=== PATIENT | male | born 1950 | race Caucasian/White ===

== ENCOUNTER 2017-09-27 07:10 | Day surgery (SDC) | payer BC ==
[2017-09-25 09:18] VITALS: BMI 28.8
--- NOTE | 2017-09-26 12:11 | HP ---
HISTORY AND PHYSICAL CHIEF COMPLAINT: Right knee pain. 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 It has worsened recently. He notes increasing pain with activity and with twisting movements. He notes intermittent sharp pains in giving way. He has tried previous injections along with medications with only partial temporary relief. He had a previous arthroscopy that gave him partial temporary relief. PAST MEDICAL HISTORY: Significant for gout, reflux disease, and hypertension. PAST SURGICAL HISTORY: Significant for right knee arthroscopy, right hand surgery and cholecystectomy. CURRENT MEDICATIONS: 1. Allopurinol. 2. Aspirin. 3. Lisinopril. 4. Prilosec. 5. Ziac. ALLERGIES: He denies drug allergies. FAMILY HISTORY: Significant for cancer. SOCIAL HISTORY: Significant for social alcohol use. REVIEW OF SYSTEMS: Sixteen point review of systems otherwise reviewed and is noncontributory. PHYSICAL EXAMINATION: On examination, the patient is approximately 5 feet 8 inches, 190 pounds of mesomorphic habitus. HEENT exam is nonfocal. Neck is supple. He has painless passive motion of his right hip. Straight leg raise is negative. Active motion right knee -6 to 115 degrees of flexion. He is tender about the medial joint line. He has a trace effusion. Collaterals are stable, Sandro's negative, Rehana's elicits medial pain. His distal neurovascular exam appears to be intact in the right lower extremity. MRI report for the right knee from 08/29/2017 shows a partial ACL tear along with a posterior medial meniscal tear. Previous x-rays of the right knee obtained in the office show moderate medial compartment narrowing. IMPRESSION: 1. Right knee internal derangement with symptomatic medial meniscal tear. 2. Right knee partial ACL tear. 3. Right knee medial compartment osteoarthrosis. RECOMMENDATIONS: I talked to the patient at length regarding his treatment options. At this point, he is having significant pain and mechanical symptoms that limit him despite adequate conservative measures. After a thorough discussion, he opts to proceed with surgery. We will plan to proceed with arthroscopic evaluation with possible partial medial meniscectomy. Risks and benefits were discussed at length in layman's terms. We will likely perform that as an outpatient procedure. MMODL / IJN: [id number] /
[~2017-09-27 07:10] MED LIST: DEXAMETHASONE SOD PHOSPHATE 10 MG/ML 1 ML VIAL IV ONE; HYDROmorphone 0.5 MG/0.5 ML SYRINGE IVP PRN; LACTATED RINGERS 1,000 ML IV SCH; LIDOCAINE 1% 20 ML VIAL (10MG/ML) FOR IV START INTRADERMA PRN; MIDAZOLAM 2 MG/2 ML VIAL IV PRN; ONDANSETRON 4 MG/2 ML VIAL IVP ONE; SCOPOLAMINE 1.5MG/72HR PATCH TRANSDERM ONE; ceFAZolin IN SWFI 2 GM/20 ML SYRINGE IVP ONE
[2017-09-27] MEDS ORDERED: fentaNYL (PF) 50 MCG/ML 2 ML AMP ONE (08:11)
[2017-09-27] MEDS ORDERED: PROPOFOL 10 MG/ML 20 ML VIAL IV ONE (08:11)
[2017-09-27] MEDS ORDERED: KETOROLAC 30 MG/ML 1 ML VIAL ONE (08:11)
[2017-09-27] MEDS ORDERED: MIDAZOLAM 2 MG/2 ML VIAL ONE (08:11)
[2017-09-27] MEDS ORDERED: SUCCINYLCHOLINE CHLORIDE 100 MG/5 ML SYR IV ONE (08:11)
[2017-09-27] MEDS ORDERED: LIDOCAINE 1% INJ 10MG/ML (20 ML MDV) ONE (08:11)
[2017-09-27] MEDS ORDERED: EPINEPHrine (PF) 1 ML in SODIUM CHLORIDE 0.9% IRRIGATIO 3,000 ML IRRIGATION ONE ×4 (08:29)
--- NOTE | 2017-09-27 09:05 | P.OP ---
Date of Procedure: 09/27/17 Preoperative Diagnosis: Right knee internal derangement Postoperative Diagnosis: Right knee posterior medial meniscal tear/grade 3 chondral injury posterior medial portion medial femoral condyle/grade 3 chondral injury distal central portion lateral femoral condyle/partial ACL rupture Procedure(s) Performed: Right knee arthroscopic partial medial meniscectomy/medial femoral chondrectomy/ lateral femoral chondrectomy/partial ACL debridement Anesthesia: GETA Surgeon: Willian Chou Estimated Blood Loss (ml): 10 Pathology: none sent Condition: stable Disposition: PACU Indications for Procedure: The patient's a 67-year-old male who presents with progressive right knee pain and mechanical symptoms after a previous twisting injury. He did try conservative measures with persistence of his symptoms. A discussion of the risks and benefits of operative intervention versus continued conservative measures was made with patient. He opted to proceed with surgery. Operative risks to include infection, neurovascular injury, development of blood clots, possible incomplete resolution of symptoms, possible worsening symptoms and need for subsequent procedures was discussed. Informed consent was obtained. Operative Findings: As below Description of Procedure: The patient was brought to the operating room, and after induction of general anesthesia examined the right knee. Collaterals were stable, Sandro was negative, and posterior drawer was negative. The right lower extremity was prepped and draped in a normal fashion. A superior lateral portal was made through a 3 mm skin incision superior and lateral to the patella. This was used for outflow. A lateral portal was made through a 5 mm vertical skin incision lateral to the patella tendon above the joint line. Diagnostic arthroscopy was performed. A medial portal was made through a similar incision medial to the patellar tendon above the joint line. On inspection of the medial compartment, a complex tear involving the posterior horn medial meniscus was noted. There is a horizontal cleavage component along with an oblique component. This was not amenable to repair. This was debrided back to stable base with straight baskets and a motorized shaver. The edges were contoured. A corresponding posterior medial chondral injury of the medial femoral condyle was noted. There was a loose chondral flap debrided back to stable base with a motorized shaver. On inspection the notch there was a partial anterior cruciate ligament tear with a portion impinging on the lateral compartment. This portion was debrided with motorized shaver. The remaining anterior cruciate ligament was stable and intact. On inspection of the lateral compartment, a grade 3 chondral injury involving the central distal lateral femoral condyle was noted. There was a small loose chondral flap that was debrided back to stable base with a motorized shaver. On inspection of the patellofemoral articulation, minimal degenerative changes were noted. The gutters were clear of debris. The knee was then thoroughly irrigated. The portals were closed with Steri-Strips. A sterile dressing was applied in addition to a compression stocking. The patient was awoken from general anesthesia and transferred to recovery room in good condition. Blood loss was estimated at 10 mL. No complications were incurred.
[2017-09-27 09:10] VITALS: TEMP 97.8
[2017-09-27 10:39] VITALS: BP 151/86; PULSE 56; RESP 18
== END 2017-09-27 10:54 | disposition home or self-care (01) ==
LOC: OR 07:10
PROVIDERS: ATTEND Orthopaedic Surgery
DX: S83.231A Complex tear of medial meniscus, current injury, right knee, initial encounter (principal); S83.511A Sprain of anterior cruciate ligament of right knee, initial encounter; M17.11 Unilateral primary osteoarthritis, right knee; X58.XXXA Exposure to other specified factors, initial encounter; M10.9 Gout, unspecified; K21.9 Gastro-esophageal reflux disease without esophagitis; I10 Essential (primary) hypertension; I25.10 Atherosclerotic heart disease of native coronary artery without angina pectoris; E78.5 Hyperlipidemia, unspecified; Z79.82 Long term (current) use of aspirin; Z79.899 Other long term (current) drug therapy; Z87.891 Personal history of nicotine dependence
CPT/HCPCS: 29881; 29888; J2250; J1100; J0690; J2405; J0171; J2001; J3010; J1885; J0330; J2704

== ENCOUNTER → 2017-11-27 | Outpatient (CLI) | payer BC ==
[2017-11-27 11:39] LABS: Basophils # (A) 0.1 k/uL (0-0.2); Basophils % (A) 1 %; Eosinophils # (A) 0.3 k/uL (0-0.7); Eosinophils % (A) 4 %; HGB 13.8 gm/dL (13.0-17.5); Lymphocytes # (A) 2.3 k/uL (1.0-4.8); Lymphocytes % (A) 29 %; MCH 31.4 pg (25.0-35.0); Mean Platelet Volume 6.8; Monocytes # (A) 0.6 k/uL (0-1.0); Monocytes % (A) 7 %; Neutrophils # (A) 4.6 k/uL (1.3-7.7); Neutrophils % (A) 58 %; Platelet Count 246 k/uL (150-450); RBC 4.39 m/uL (4.30-5.90); RDW 12.3 % (11.5-15.5); WBC 7.9 k/uL (3.8-10.6)
[2017-11-27 11:52] LABS: ALT 35 U/L (21-72); Anion Gap 13 mmol/L; Blood Urea Nitrogen 33 mg/dL (9-20); Carbon Dioxide 25 mmol/L (22-30); Chloride 103 mmol/L (98-107); Cholesterol 243 mg/dL (<200); Glucose 97 mg/dL (74-99); HDL Cholesterol 55 mg/dL (40-60); LDL Cholesterol,Calculated 147 mg/dL (0-99); Potassium 4.4 mmol/L (3.5-5.1); Sodium 141 mmol/L (137-145); Triglycerides 203 mg/dL (<150)
== END | disposition home or self-care (01) ==
LOC: LABWHC1 11:08
PROVIDERS: ATTEND Internal Medicine Cardiovascular Disease
DX: E78.5 Hyperlipidemia, unspecified (principal); E55.9 Vitamin D deficiency, unspecified; I25.10 Atherosclerotic heart disease of native coronary artery without angina pectoris; I10 Essential (primary) hypertension
CPT/HCPCS: 36415; 80051; 80061; 82306; 82565; 82947; 83880; 84443; 84460; 84520; 85025

== ENCOUNTER → 2018-01-27 | Outpatient (CLI) | payer BC, MEDICARE ==
[2018-01-27 10:44] LABS: Basophils % (A) 1 %; Eosinophils # (A) 0.3 k/uL (0-0.7); Eosinophils % (A) 5 %; HCT 37.8 % (39.0-53.0); HGB 12.9 gm/dL (13.0-17.5); Lymphocytes # (A) 1.6 k/uL (1.0-4.8); Lymphocytes % (A) 26 %; MCH 31.3 pg (25.0-35.0); MCHC 34.2 g/dL (31.0-37.0); Mean Platelet Volume 6.8; Monocytes # (A) 0.4 k/uL (0-1.0); Monocytes % (A) 6 %; Neutrophils # (A) 3.6 k/uL (1.3-7.7); Neutrophils % (A) 59 %; Platelet Count 285 k/uL (150-450); RBC 4.13 m/uL (4.30-5.90); RDW 12.8 % (11.5-15.5); WBC 6.1 k/uL (3.8-10.6)
[2018-01-27 10:46] LABS: MCV 91.7 fL (80.0-100.0)
[2018-01-27 10:51] LABS: Potassium 4.7 mmol/L (3.5-5.1)
== END | disposition home or self-care (01) ==
LOC: LABWHC1 09:58
PROVIDERS: ATTEND Internal Medicine Cardiovascular Disease
DX: I25.10 Atherosclerotic heart disease of native coronary artery without angina pectoris (principal); I10 Essential (primary) hypertension; E78.5 Hyperlipidemia, unspecified; E55.9 Vitamin D deficiency, unspecified
CPT/HCPCS: 36415; 80051; 80061; 82306; 82565; 82947; 84443; 84460; 84520; 85025

== ENCOUNTER 2018-02-01 14:27 | Emergency (ER) | payer BC, MEDICARE ==
[2018-02-01 14:32] VITALS: BP 157/74; PULSE 75; RESP 18; TEMP 96.9
[2018-02-01] MEDS ORDERED: ceFAZolin 1,000 MG VIAL IM STA (14:47)
--- NOTE | 2018-02-01 14:57 | ED ---
General Adult HPI - General Chief complaint: Skin/Abscess/Foreign Body Stated complaint: Hand infection Time Seen by Provider: 02/01/18 14:34 Source: patient Mode of arrival: ambulatory Limitations: no limitations - History of Present Illness Initial comments: Patient is a 67-year-old male presenting for evaluation of an infection. Patient states that on Saturday, he started having redness on the dorsal aspect of his right hand around the knuckle. He said it got worse and then presented to the emergency department this morning. He was given Bactrim and instructed to return to the ED if he felt that symptoms were worsening. He noted that since that time, he has been having worsening redness as well as swelling on the dorsal aspect of the hand but no extension of the redness to the wrist. He states that there is minimal tenderness and he is able to feel his fingers as well as full strength. He also denies any fevers or chills. He states that he was given a prescription for Bactrim and has taken his morning dose. - Related Data Home Medications Medication Instructions Recorded Confirmed Allopurinol [Zyloprim] 300 mg PO DAILY 09/25/17 09/27/17 Aspirin [Adult Low Dose Aspirin EC] 81 mg PO DAILY 09/25/17 09/27/17 Ibuprofen 200 mg PO DAILY 09/25/17 09/27/17 Lisinopril (Unknown Dose) 1 tab PO QAM 09/25/17 09/27/17 Prilosec (Unknown Dose) 1 tab PO QAM 09/25/17 09/27/17 Ziac (Unknown Dose) 1 tab PO QAM 09/25/17 09/27/17 Ubidecarenone [Co Q-10] 100 mg PO DAILY 09/27/17 09/27/17 Previous Rx's Medication Instructions Recorded Hydrocodone/Acetaminophen [[place] 1 each PO Q6HR PRN #20 tab 09/27/17 5-325] Cephalexin [Keflex] 500 mg PO Q8HR 7 Days #21 cap 02/01/18 Sulfamethox-Tmp 800-160Mg [Bactrim 2 each PO Q12HR #28 tab 02/01/18 Ds] Allergies Allergy/AdvReac Type Severity Reaction Status Date / Time No Known Allergies Allergy Verified 02/01/18 14:33 Review of Systems ROS Statement: Those systems with pertinent positive or pertinent negative responses have been documented in the HPI. Constitutional: Negative for chills, fatigue and fever. HENT: Negative for congestion. Respiratory: Negative for chest tightness, shortness of breath and wheezing. Cardiovascular: Negative for chest pain and palpitations. Gastrointestinal: Negative for abdominal pain. Negative for abdominal distention , diarrhea, nausea and vomiting. Genitourinary: Negative for dysuria. Musculoskeletal: Negative for back pain, neck pain and neck stiffness. Skin: Positive for erythema and soft tissue swelling on the dorsal aspect of the right hand Neurological: Negative for dizziness, speech difficulty, weakness and light- headedness. Psychiatric/Behavioral: Negative for agitation and confusion. The patient is not nervous/anxious. ROS Other: All systems not noted in ROS Statement are negative. Past Medical History Past Medical History: Hyperlipidemia, Hypertension History of Any Multi-Drug Resistant Organisms: None Reported Past Surgical History: Cholecystectomy Additional Past Surgical History / Comment(s): colonscopy Past Psychological History: No Psychological Hx Reported Smoking Status: Former smoker Past Alcohol Use History: Daily Past Drug Use History: None Reported General Exam - General Exam Comments Initial Comments: Physical Exam Constitutional: Pt is oriented to person, place, and time. Pt appears well- developed and well-nourished. No distress. HENT: Head: Normocephalic and atraumatic. Eyes: EOM are normal. Neck: Normal range of motion. Neck supple. Cardiovascular: Normal rate, regular rhythm, S1 normal, S2 normal and normal heart sounds. Exam reveals no gallop and no friction rub. No murmur heard. Pulmonary/Chest: Effort normal and breath sounds normal. No tachypnea and no bradypnea. No respiratory distress. No wheezes or rales noted. Abdominal: Soft. Bowel sounds are normal. Pt exhibits no shifting dullness, no distension, no pulsatile liver, no fluid wave, no abdominal bruit and no ascites. There is no tenderness. There is no rigidity, no rebound, no guarding, no tenderness at McBurney's point and negative Weeks's sign. Musculoskeletal: Normal range of motion. Neurological: Pt is alert and oriented to person, place, and time. No cranial nerve deficit. Skin: Skin is warm and dry. No rash noted. Pt is not diaphoretic. No pallor. There is erythema on the dorsal aspect of the right hand more so at the proximal fourth phalange he as well as the fourth MCP. There is abscess formation just distal to the fourth MCP with no fluctuance. There is no extension of erythema past the dorsal aspect the hand Psychiatric: Pt has a normal mood and affect. Pt behavior is normal. Thought content normal. Limitations: no limitations Course Vital Signs 02/01/18 14:29 Temperature 96.9 F L Pulse Rate 75 Respiratory 18 Rate Blood Pressure 157/74 O2 Sat by Pulse 98 Oximetry Medical Decision Making - Medical Decision Making It is felt that there was no significant findings that would require hospitalization. Additionally, the patient was afebrile and vital signs were within normal limits. Extensive discussion was had with the patient regarding disposition options and it was agreed that the patient could be discharged home. Additionally, patient was given a shot of Ancef and also given a prescription for Keflex. Explained all labs and diagnostic test results and that we will discharge the patient home and patient is to follow up with PCP in 1-2 days and return to the ED if symptoms worsen. Pt is agreeable to plan. Disposition Clinical Impression: Abscess of hand including fingers Disposition: HOME SELF-CARE Condition: Good Instructions: Abscess (ED) Prescriptions: Cephalexin [Keflex] 500 mg PO Q8HR 7 Days #21 cap Is patient prescribed a controlled substance at d/c from ED?: No Referrals: Efrain Chi MD [Primary Care Provider] - 1-2 days Time of Disposition: 15:05
== END 2018-02-01 15:10 | disposition home or self-care (01) ==
LOC: EC 14:27
DX: L02.511 Cutaneous abscess of right hand (principal); I10 Essential (primary) hypertension; Z87.891 Personal history of nicotine dependence; Z79.1 Long term (current) use of non-steroidal anti-inflammatories (NSAID); Z79.82 Long term (current) use of aspirin; Z79.899 Other long term (current) drug therapy
CPT/HCPCS: 99283; 96372; J0690

== ENCOUNTER → 2020-04-27 | Outpatient (CLI) | payer BC ==
[2020-04-27 11:09] LABS: HCT 41.6 % (39.0-53.0); HGB 14.1 gm/dL (13.0-17.5); MCH 32.1 pg (25.0-35.0); MCHC 33.8 g/dL (31.0-37.0); MCV 94.9 fL (80.0-100.0); Mean Platelet Volume 6.9; Platelet Count 255 k/uL (150-450); RBC 4.38 m/uL (4.30-5.90); RDW 12.5 % (11.5-15.5); WBC 6.5 k/uL (3.8-10.6)
[2020-04-27 20:47] LABS: Anion Gap 7.7 mmol/L (4.00-12.00); Calcium 9.4 mg/dL (8.7-10.3); Carbon Dioxide 29.3 mmol/L (21.6-31.8); Non-African American GFR(CKD) 68.1 (60.0-200.0); Phosphorus 3.5 mg/dL (2.4-5.1); Potassium 3.8 mmol/L (3.5-5.5); Uric Acid 5.7 mg/dL (3.7-8.7)
== END | disposition home or self-care (01) ==
LOC: LABWHC1 09:19
PROVIDERS: ATTEND Internal Medicine Cardiovascular Disease
DX: I25.10 Atherosclerotic heart disease of native coronary artery without angina pectoris (principal); E78.5 Hyperlipidemia, unspecified; I13.0 Hypertensive heart and chronic kidney disease with heart failure and stage 1 through stage 4 chronic kidney disease, or unspecified chronic kidney disease; N18.3 Chronic kidney disease, stage 3 (moderate); R06.02 Shortness of breath; R53.83 Other fatigue
CPT/HCPCS: 36415; 80051; 82306; 82310; 82565; 83880; 83970; 84100; 84520; 84550; 85027

== ENCOUNTER → 2021-03-30 | Outpatient (CLI) | payer BC ==
[2021-03-30 13:46] LABS: African American GFR (CKD) 78.4 (60.0-200.0); Anion Gap 10.7 mmol/L (4.00-12.00); Carbon Dioxide 25.3 mmol/L (21.6-31.8); Non-African American GFR(CKD) 67.7 (60.0-200.0); Potassium 3.7 mmol/L (3.5-5.5)
== END | disposition home or self-care (01) ==
LOC: LABWHC1 08:23
PROVIDERS: ATTEND Internal Medicine Cardiovascular Disease
DX: I25.10 Atherosclerotic heart disease of native coronary artery without angina pectoris (principal); I13.0 Hypertensive heart and chronic kidney disease with heart failure and stage 1 through stage 4 chronic kidney disease, or unspecified chronic kidney disease; N18.2 Chronic kidney disease, stage 2 (mild); E78.5 Hyperlipidemia, unspecified; Z86.16 Personal history of COVID-19; Z79.899 Other long term (current) drug therapy; I50.9 Heart failure, unspecified
CPT/HCPCS: 36415; 80051; 82565; 83880; 84520

== ENCOUNTER → 2021-05-30 | Outpatient (CLI) | payer BC ==
--- NOTE | 2021-05-30 11:52 | XR ---
EXAMINATION TYPE: XR chest 2V DATE OF EXAM: 05/30/2021 COMPARISON: NONE HISTORY: Annual physical exam. Was covid positive in February. TECHNIQUE: Frontal and lateral views of the chest are obtained. FINDINGS: There is no focal air space opacity, pleural effusion, or pneumothorax seen. The cardiac silhouette size is mildly enlarged. The osseous structures are intact. IMPRESSION: Mild Cardiomegaly without acute pulmonary process.
== END | disposition home or self-care (01) ==
LOC: RADXRMAIN 11:37
PROVIDERS: ATTEND Internal Medicine
DX: Z00.00 Encounter for general adult medical examination without abnormal findings (principal); I51.7 Cardiomegaly; Z86.16 Personal history of COVID-19
CPT/HCPCS: 71046